=== PATIENT | female | born 1960 | race African-American/Black ===

== ENCOUNTER → 2016-06-21 | Outpatient (CLI) | payer BC | END | disposition home or self-care (01) | LOC: PCVCIMAG 13:54 | PROVIDERS: ATTEND Internal Medicine | DX: I10 Essential (primary) hypertension (principal); I35.2 Nonrheumatic aortic (valve) stenosis with insufficiency; E78.00 Pure hypercholesterolemia, unspecified | CPT/HCPCS: 93017; 93306 ==

== ENCOUNTER → 2017-10-06 | Outpatient (CLI) | payer BC | END | disposition home or self-care (01) | LOC: PCVCIMAG 14:23 | DX: I08.2 Rheumatic disorders of both aortic and tricuspid valves (principal); I71.2 Thoracic aortic aneurysm, without rupture; E11.9 Type 2 diabetes mellitus without complications | CPT/HCPCS: 93306 ==

== ENCOUNTER → 2019-03-07 | Outpatient (CLI) | payer BC ==
--- NOTE | 2019-03-07 16:36 | PCVCIMAG ---
APPROVED REPORT Study performed: 03/07/2019 13:58:07 EXAM: Comprehensive 2D, Doppler, and color-flow Echocardiogram Patient Location: Echo lab Room #: 3Status: routine BSA: 1.74 HR: 64 bpmBP: 138/70 mmHg Rhythm: NSR Other Information Study Quality: Adequate Risk Factors: Cardiac Risk Factors: HTN, Hyperlipidemia, DM Indications Thoracic aortic aneurysm Aortic Insufficiency 2D Dimensions IVSd: 9.99 (7-11mm)LVOT Diam: 21.00 (18-24mm) LVDd: 49.45 mm PWd: 10.43 (7-11mm)Ascending Ao: 45.72 (22-36mm) LVDs: 33.30 (25-40mm) Left Atrium: 28.33 (27-40mm) Aortic Root: 33.63 mm LV Single Plane 4CH: 65.26 % LV Single Plane 2CH: 63.39 % Biplane EF: 66.7 % Volumes Left Atrial Volume (Systole) Single Plane 4CH: 53.42 mLSingle Plane 2CH: 39.31 mL LA ESV Index: 26.00 mL/m2 Aortic Valve AoV Peak Aamir.: 1.49 m/s AO Peak Gr.: 8.89 mmHgLVOT Max P.42 mmHg LVOT Max V: 1.05 m/s JESSICA Vmax: 2.52 cm2 AI Vmax: 4.45 m/s AI Heard: 2.43 m/s2 AI PHT: 531.86 ms Mitral Valve E/A Ratio: 0.8 MV Decel. Time: 204.40 ms MV E Max Aamir.: 0.84 m/s MV A Aamir.: 1.04 m/s IVRT: 62.28 ms TDI E/Lateral E': 12.00E/Medial E': 21.00 Medial E' Aamir.: 0.04 m/s Lateral E' Aamir.: 0.07 m/s Pulmonary Valve PV Peak Aamir.: 0.97 m/sPV Peak Gr.: 3.80 mmHg Pulmonary Vein P Vein S: 0.80 m/sP Vein A: 0.27 m/s P Vein D: 0.41 m/sP Vein A Dur.: 93.4 msec P Vein S/D Ratio: 1.95 Tricuspid Valve RAP Estimate: 7.00 mmHg Left Ventricle The left ventricle is normal size. There is normal LV segmental wall motion. There is normal left ventricular wall thickness. Left ventricular systolic function is normal. The left ventricular ejection fraction is within the normal range. LVEF is 60-65%. Mild diastolic dysfunction Right Ventricle The right ventricle is normal size. The right ventricular systolic function is normal. Atria The left atrium size is normal. The right atrium size is normal. Aortic Valve The aortic valve is normal in structure. Moderate aortic regurgitation. There is no aortic valvular stenosis. Mitral Valve The mitral valve is normal in structure. Mild mitral regurgitation. No evidence of mitral valve stenosis. Tricuspid Valve The tricuspid valve is normal in structure. Trace tricuspid regurgitation. Unable to assess PA pressure. Pulmonic Valve The pulmonary valve is normal in structure. There is no pulmonic valvular regurgitation. Great Vessels The aortic root is normal in size. The ascending aorta is moderately dilated (4.6 cm). IVC is normal in size and collapses >50% with inspiration. Pericardium There is no pericardial effusion. <Conclusion> Left ventricular systolic function is normal. There is normal LV segmental wall motion. LVEF is 60-65%. Mild diastolic dysfunction The aortic valve is normal in structure. Moderate aortic regurgitation, no stenosis. The mitral valve is normal in structure. 1Mild mitral regurgitation. Unable to assess pulmonary artery pressure. The ascending aorta is moderately dilated (4.6 cm). There is no pericardial effusion.
== END | disposition home or self-care (01) ==
LOC: PCVCIMAG 01:15
PROVIDERS: ATTEND Internal Medicine
DX: I08.0 Rheumatic disorders of both mitral and aortic valves (principal); I71.2 Thoracic aortic aneurysm, without rupture
CPT/HCPCS: 93306